=== PATIENT | female | born 2000 | race Caucasian/White ===

== ENCOUNTER → 2022-02-11 13:46 | Observation (INO) ==
[2022-02-11 12:01] LABS: Bacteria,Urine Few per hpf (None-Few); Bilirubin,Urine Negative (Negative); Blood,Urine Negative (Negative); Clarity,Urine Turbid (Clear); Color,Urine Yellow (Yellow); Glucose,Urine (UA) Normal (Normal); Hyaline Casts,Urine Few per lpf (None Seen); Ketones,Urine Negative (Negative); Leukocyte Esterase,Urine Trace (Negative); Mucus,Urine Few per lpf (None-Few); Nitrite,Urine Negative (Negative); PH,Urine 7.5 pH Units (5.0-8.0); Protein,Urine Trace mg/dL (Neg-Trace); RBC,Urine 0-3 per hpf (0-3); Specific Gravity,Urine 1.023 (1.010-1.025); Squamous Epithelial Cell,Urine Many per hpf (None-Few); Urobilinogen,Urine Normal (Normal)
[~2022-02-11 13:46] MED LIST: Ringers Solution, Lactated 1,000 ML IVC ONE; Ringers Solution, Lactated 1,000 ML ONE; Terbutaline 1 MG/ML VIAL SQ ONE; ceFAZolin 1,000 MG in 0.9 % Sodium Chloride 10 ML IVP ONE
== END | disposition home or self-care (01) ==
LOC: 1NENULAB
PROVIDERS: ADMIT Obstetrics & Gynecology; ATTEND Obstetrics & Gynecology

== ENCOUNTER 2022-02-17 21:01 | Observation (INO) ==
[2022-02-17 22:01] LABS: Bilirubin,Urine Negative (Negative); Blood,Urine Negative (Negative); Clarity,Urine Clear (Clear); Color,Urine Colorless (Yellow); Glucose,Urine (UA) Normal (Normal); Ketones,Urine Negative (Negative); Leukocyte Esterase,Urine Trace (Negative); Mucus,Urine Few per lpf (None-Few); Nitrite,Urine Negative (Negative); Protein,Urine Negative (Neg-Trace); RBC,Urine 0-3 per hpf (0-3); Specific Gravity,Urine 1.014 (1.010-1.025); Squamous Epithelial Cell,Urine Few per hpf (None-Few); Urobilinogen,Urine Normal (Normal); WBC,Urine 0-3 per hpf (0-3)
== END 2022-02-18 07:00 | disposition home or self-care (01) ==
LOC: 1NENULAB
PROVIDERS: ADMIT Obstetrics & Gynecology; ATTEND Obstetrics & Gynecology

== ENCOUNTER → 2022-02-20 11:46 | Observation (INO) ==
[~2022-02-20 11:46] MED LIST changes: +Prenatal Vit/FA 1 EACH TABLET PO SCH; -Ringers Solution, Lactated 1,000 ML IVC ONE; -Ringers Solution, Lactated 1,000 ML ONE; -Terbutaline 1 MG/ML VIAL SQ ONE; -ceFAZolin 1,000 MG in 0.9 % Sodium Chloride 10 ML IVP ONE
== END | disposition home or self-care (01) ==
LOC: 1NENULAB
PROVIDERS: ADMIT Student in an Organized Health Care Education/Training Program; ATTEND Student in an Organized Health Care Education/Training Program

== ENCOUNTER 2022-02-21 17:16 | Inpatient (IN) ==
[2022-02-21] MEDS: Ringers Solution, Lactated 1,000 ML IVC SCH ×3 (12:22→18:29)
[2022-02-21 12:31] LABS: Basophils % 0.3 %; Eosinophils % 0.1 %; Hematocrit 39.8 % (35.3-44.9); Hemoglobin 13.6 g/dL (11.5-15.4); Immature Granulocytes % 0.5 % (0-4); Lymphocytes % 7.7 %; Mean Corpuscular HGB Conc 34.2 g/dL (31.6-35.5); Mean Corpuscular Hemoglobin 30.4 pg (28.0-33.3); Mean Platelet Volume 11.9 fL (9.4-12.4); Monocytes # 0.7 K/mcL (0.0-1.3); Monocytes % 5.2 %; Neutrophils # 11.4 K/mcL (1.6-8.9); Platelet Count 234 K/mcL (140-400); Red Blood Count 4.47 M/mcL (3.82-4.97); Red Cell Distribution Width 14.2 % (11.5-14.5); Segmented Neutrophils % 86.2 %; White Blood Count 13.2 K/mcL (4.3-11.1)
[2022-02-21 13:40] LABS: Prothrombin Time 10.8 Seconds (9.4-12.1)
[2022-02-21 13:42] LABS: Activated Partial Thrombo Time 26.8 Seconds (26.0-36.0)
[2022-02-21 13:47] LABS: Amphetamine Screen,Urine Negative ng/mL (Cutoff=1000); Barbiturate Screen,Urine Negative ng/mL (Cutoff=200); Benzodiazepines Screen,Urine Negative ng/mL (Cutoff=200); Cannabinoid Screen,Urine Negative ng/mL (Cutoff = 50); Cocaine Screen,Urine Negative ng/mL (Cutoff= 300); Opiate Screen,Urine Negative ng/mL (Cutoff=300); Phencyclidine Screen,Urine Negative ng/mL (Cutoff=25)
[2022-02-21 16:50] LABS: Influenza A PCR Negative (Negative); Influenza B PCR Negative (Negative); Resp. Syncytial Virus PCR Negative (Negative)
[2022-02-21 16:51] LABS: SARS-CoV-2 by PCR (In House) Negative (Negative)
[~2022-02-21 17:16] MED LIST changes: +*HR* FentaNYL (PF) 100 MCG/2 ML VIAL EP ONE; +*HR* FentaNYL (PF) 100 MCG/2 ML VIAL ONE; +*HR* Nalbuphine 10 MG/ML AMPUL IV PRN; +EPHEDrine 50 MG/ML VIAL IVP PRN; +Epidural Premix (fent/bupiv) 110 ML EP SCH; +Famotidine 20 MG/2 ML VIAL IVP PRN; +Metoclopramide 10 MG/2 ML VIAL IVP PRN; +Naloxone 0.4 MG/ML INJ IVP PRN; +Ondansetron 4 MG/2 ML VIAL IVP PRN; -Prenatal Vit/FA 1 EACH TABLET PO SCH; +Ringers Solution, Lactated 1,000 ML ONE; +Ropivacaine/PF 0.2% 20 ML VIAL EP ONE; +Ropivacaine/PF 0.2% 20 ML VIAL ONE
[2022-02-21] MEDS ORDERED: Oxytocin 30 UNIT/503 ML BAG IVC SCH (18:15)
[2022-02-22] MEDS ORDERED: Lanolin 7 G OINT...G. TP PRN (00:22)
[2022-02-22] MEDS ORDERED: Rho Immune Globulin 1,500 UNIT SYRINGE IM PRN (00:22)
[2022-02-22] MEDS ORDERED: Oxytocin 30 UNIT/503 ML BAG IVC SCH (00:22)
[2022-02-22] MEDS ORDERED: Ondansetron ODT 4 MG TAB.RAPDIS SL PRN (00:22)
[2022-02-22] MEDS ORDERED: Benzocaine/Menthol 56 GM AEROSOL SPRAY TP PRN (00:22)
[2022-02-22] MEDS ORDERED: Measles/Mumps/Rubella Vacc 0.5 ML VIAL SQ PRN (00:22)
[2022-02-22] MEDS ORDERED: NON-FORMULARY MEDICATION 1 EACH EACH (Ferrous Sulfate 1 TAB) PO SCH (00:22)
[2022-02-22] MEDS: Ibuprofen 600 MG TABLET PO SCH ×3 (02:26→19:57)
[2022-02-22] MEDS: Acetaminophen 325 MG TABLET PO SCH ×3 (02:27→19:56)
[2022-02-22 05:06] LABS: Basophils % 0.3 %; Eosinophils # 0.1 K/mcL (0.0-0.6); Eosinophils % 0.5 %; Hematocrit 32.8 % (35.3-44.9); Immature Granulocytes % 0.6 % (0-4); Lymphocytes # 1.4 K/mcL (0.6-4.6); Lymphocytes % 9.8 %; Mean Corpuscular HGB Conc 32.6 g/dL (31.6-35.5); Mean Corpuscular Hemoglobin 29.7 pg (28.0-33.3); Mean Corpuscular Volume 91.1 fL (83.0-100.0); Mean Platelet Volume 11.7 fL (9.4-12.4); Monocytes # 0.9 K/mcL (0.0-1.3); Monocytes % 6.1 %; Neutrophils # 11.7 K/mcL (1.6-8.9); Platelet Count 174 K/mcL (140-400); Red Cell Distribution Width 14.1 % (11.5-14.5); Segmented Neutrophils % 82.7 %; White Blood Count 14.1 K/mcL (4.3-11.1)
[2022-02-22 05:11] LABS: Hemoglobin 10.7 g/dL (11.5-15.4)
[2022-02-22] MEDS ORDERED: NON-FORMULARY MEDICATION 1 EACH EACH (Prenatal Vitamin Tablet 1 TAB) PO SCH (09:00)
[2022-02-22] MEDS: Prenatal Vit/FA 1 EACH TABLET PO SCH (09:24)
[2022-02-22 19:25] VITALS: O2SAT 98
[2022-02-23] MEDS: Acetaminophen 325 MG TABLET PO SCH ×2 (02:12→08:19)
[2022-02-23] MEDS: Ibuprofen 600 MG TABLET PO SCH ×2 (02:12→08:19)
[2022-02-23 06:58] VITALS: PULSE 73; TEMP 97.9
[2022-02-23] MEDS: Prenatal Vit/FA 1 EACH TABLET PO SCH (08:18)
[2022-02-23 10:07] VITALS: BP 108/69
== END 2022-02-23 15:39 | disposition home or self-care (01) | DRG 807 ==
LOC: 1NENULAB → 1NENUOBS 02-22 00:16
PROVIDERS: ADMIT Student in an Organized Health Care Education/Training Program; ATTEND Student in an Organized Health Care Education/Training Program